=== PATIENT | male | born 1980 | race Caucasian/White ===

== ENCOUNTER 2021-09-26 13:55 | Outpatient (CLI) | payer OTHER | END 2021-09-26 13:56 | disposition home or self-care (01) | LOC: CSHRAD 13:55 → CSHER/OP 13:56 | PROVIDERS: ATTEND Psychiatry & Neurology Neurology | DX: M54.50 Low back pain, unspecified (principal) | CPT/HCPCS: 72100 ==

== ENCOUNTER 2022-07-15 21:30 | Emergency (ER) | payer SELFPAY ==
[2022-07-15] MEDS ORDERED: Lidocaine 1% (PF) 30 ML VIAL ONE (22:03)
[2022-07-15] MEDS ORDERED: Boostrix 0.5 ML (Tdap) VIAL ONE (22:04)
== END 2022-07-15 22:54 | disposition home or self-care (01) ==
LOC: CSHERS 21:30
DX: S91.111A Laceration without foreign body of right great toe without damage to nail, initial encounter (principal); W45.0XXA Nail entering through skin, initial encounter
CPT/HCPCS: 12001; 90471; 90715; J2001

== ENCOUNTER 2022-07-17 17:07 | Emergency (ER) | payer SELFPAY ==
[2022-07-17] MEDS ORDERED: cefTRIAXone\\ROCEPHIN 1 GM VIAL ONE (17:58)
[2022-07-17] MEDS ORDERED: Lidocaine 1% (PF) 30 ML VIAL ONE (17:58)
== END 2022-07-17 18:51 | disposition home or self-care (01) ==
LOC: CSHERS 17:07
DX: S91.111A Laceration without foreign body of right great toe without damage to nail, initial encounter (principal); L03.031 Cellulitis of right toe; W26.8XXA Contact with other sharp object(s), not elsewhere classified, initial encounter
CPT/HCPCS: 96372; J0696; J2001

== ENCOUNTER 2022-07-28 18:38 | Emergency (ER) | payer SELFPAY ==
[2022-07-28] MEDS ORDERED: Ibuprofen 200 MG TAB ONE (20:48)
== END 2022-07-28 21:02 | disposition home or self-care (01) ==
LOC: CSHERS 18:38
DX: S91.111D Laceration without foreign body of right great toe without damage to nail, subsequent encounter (principal); F17.210 Nicotine dependence, cigarettes, uncomplicated; X58.XXXD Exposure to other specified factors, subsequent encounter

== ENCOUNTER 2023-03-28 22:27 | Emergency (ER) | payer SELFPAY | END 2023-03-28 23:59 | disposition home or self-care (01) | LOC: CSHERS 22:27 | DX: Q67.7 Pectus carinatum (principal); M94.0 Chondrocostal junction syndrome [Tietze]; F17.210 Nicotine dependence, cigarettes, uncomplicated | CPT/HCPCS: 99283 ==